=== PATIENT | male | born 1935 | race Two or more races ===

== ENCOUNTER 2018-08-02 06:31 | Day surgery (SDC) | payer OTHER ==
[~2018-08-02] VITALS: Ht 167.6 cm; Wt 84.5 kg
[~2018-08-02 06:31] MED LIST: ALPRAZolam 0.5 MG TABLET PO ONE; CYCLOPENTOLATE HCL 1% 2 ML OPHTHALMIC SOLUTION ONE; KETOROLAC TROMETHAMINE 0.5% 5 ML OPHTHALMIC SOLUTION ONE; MOXIFLOXACIN HCL 0.5% 3 ML OPHTHALMIC SOLUTION ONE; PHENYLEPHRINE HCL 2.5% 2 ML OPHTHALMIC SOLUTION ONE; RINGERS SOLUTION,LACTATED 500 ML IV ONE; TETRACAINE HCL/PF 0.5% 4 ML OPHTHALMIC SOLUTION OD ONE; TETRACAINE HCL/PF 0.5% 4 ML OPHTHALMIC SOLUTION ONE; TROPICAMIDE 1% 2 ML OPHTHALMIC SOLUTION ONE
[2018-08-02] MEDS ORDERED: MULT-1203 PO (06:49)
[2018-08-02] MEDS ORDERED: ATOR10TA84 PO (06:49)
[2018-08-02] MEDS ORDERED: METO50 PO (06:49)
[2018-08-02] MEDS ORDERED: AMLO-512 PO (06:49)
[2018-08-02] MEDS ORDERED: CLOP75TA3 PO (06:49)
[2018-08-02] MEDS ORDERED: FURO20 PO (06:49)
[2018-08-02] MEDS ORDERED: KDUR10 PO (06:49)
[2018-08-02] MEDS ORDERED: LOSA100T58 PO (06:49)
[2018-08-02] MEDS ORDERED: ASPI81TA84 PO (06:49)
[2018-08-02] MEDS: MOXIFLOXACIN HCL 0.5% 3 ML OPHTHALMIC SOLUTION OD SCH ×3 (06:53→07:14)
[2018-08-02] MEDS: PHENYLEPHRINE HCL 2.5% 2 ML OPHTHALMIC SOLUTION OD SCH ×3 (06:54→07:14)
[2018-08-02] MEDS: CYCLOPENTOLATE HCL 1% 2 ML OPHTHALMIC SOLUTION OD SCH ×3 (06:54→07:14)
[2018-08-02] MEDS: TROPICAMIDE 1% 2 ML OPHTHALMIC SOLUTION OD SCH ×3 (06:54→07:14)
[2018-08-02] MEDS: KETOROLAC TROMETHAMINE 0.5% 5 ML OPHTHALMIC SOLUTION OD SCH ×3 (06:54→07:14)
[2018-08-02] MEDS ORDERED: PHENYLEPHRINE HCL 2.5% 2 ML OPHTHALMIC SOLUTION ONE (07:12)
[2018-08-02] MEDS ORDERED: PHENYLEPHRINE HCL OD ONE (07:15)
[2018-08-02] MEDS ORDERED: MIDAZOLAM HCL 2 MG/2 ML VIAL IVP ONE (12:00)
[2018-08-02] MEDS ORDERED: FentaNYL CITRATE-PF 100 MCG/2 ML VIAL IVP ONE (12:00)
[2018-08-02] MEDS ORDERED: PILOCARPINE HCL 4% 15 ML OPHTHALMIC SOLUTION ONE (17:44)
[2018-08-02] MEDS ORDERED: POVIDONE-IODINE 10% 15 ML SOLUTION UD ONE (17:44)
[2018-08-02] MEDS ORDERED: EPINEPHrine 1:10,000 [1 MG/10 ML] SYRINGE ONE (17:44)
[2018-08-02] MEDS ORDERED: HYALURONATE SOD/CHONDROITIN SOD 0.5 ML VIAL IO ONE (17:44)
[2018-08-02] MEDS ORDERED: LIDOCAINE/PF 1% 2 ML VIAL ONE (17:44)
[2018-08-02] MEDS ORDERED: HYALURONATE SODIUM 12 MG/ML 0.8 ML SYRINGE IO ONE (17:44)
== END 2018-08-02 09:00 | disposition home or self-care (01) ==
LOC: SURGERY 06:31
PROVIDERS: ATTEND Ophthalmology
DX: H26.8 Other specified cataract (principal); M47.9 Spondylosis, unspecified; I50.9 Heart failure, unspecified; E78.5 Hyperlipidemia, unspecified; I11.0 Hypertensive heart disease with heart failure; Z95.2 Presence of prosthetic heart valve; Z79.899 Other long term (current) drug therapy; Z79.01 Long term (current) use of anticoagulants
CPT/HCPCS: 66984; 93005; C1780; J0171; J2250; J3010; J3490 ×2; J7120